=== PATIENT | male | born 1965 | race Asian ===

== ENCOUNTER 2024-11-05 13:57 | Emergency (ER) | payer BC ==
[~2024-11-05] VITALS: Ht 177.8 cm; Wt 81.6 kg
[2024-11-05] MEDS ORDERED: KETOROLAC TROMETHAMINE INJ 30 MG/ML VIAL ONE (15:55)
[2024-11-05] MEDS: KETOROLAC TROMETHAMINE INJ 30 MG/ML VIAL IM ONE (16:01)
[2024-11-05 16:53] VITALS: BP 130/93; TEMP 98.2; O2SAT 100
== END 2024-11-05 16:54 | disposition home or self-care (01) ==
LOC: ER 14:04
DX: G89.29 Other chronic pain (principal); M25.552 Pain in left hip; M54.50 Low back pain, unspecified
CPT/HCPCS: 99285; 72131; 96372; 72192; J1885